=== PATIENT | female | born 1990 | race Two or more races ===

== ENCOUNTER 2020-07-28 10:15 | Emergency (ER) | payer BC, SELFPAY ==
[2020-07-28 10:18] VITALS: BP 127/86; PULSE 82; RESP 16; TEMP 36.2; O2SAT 99; BMI 18.2
--- NOTE | 2020-07-28 10:35 | RAD_ITS ---
STUDY: X-RAY - RIGHT HAND REASON FOR EXAM: Female, 29 years old. DOG BITE TO DISTAL 4TH DIGIT TECHNIQUE: 3 view(s) of the hand. COMPARISON: None. FINDINGS: Normal radiocarpal articulation. Normal distal radioulnar joint. Normal visualized carpal bones. Normal carpal articulations Normal carpometacarpal articulation of the thumb. Normal second through fifth carpometacarpal joints. Normal metacarpi. Normal metacarpophalangeal joint of the thumb. Normal interphalangeal joint of the thumb. Normal proximal and distal phalanges of the thumb. Normal metacarpophalangeal joints of the second through fifth fingers. Normal proximal and distal interphalangeal joints of the second through fifth fingers. Nondisplaced comminuted fracture of the tuft of the distal phalanx of the fourth digit. Soft tissue laceration overlying the fourth digit. RAD/Hand Min 3 Views IMPRESSION: Nondisplaced comminuted fracture of the tuft of the distal phalanx of the fourth digit with overlying soft tissue laceration. Electronically Signed: Darryn Wills MD at 11:01 EST , Service support ,
[2020-07-28] MEDS: Amox/Clavulanate 875 MG Tablet PO (10:55)
[2020-07-28] MEDS: Diphth,Pertuss(Acell),Tet Vac 0.5 ML Vial IM (10:56)
[2020-07-28 14:47] VITALS: PULSE 64; RESP 16; O2SAT 99
--- NOTE | 2020-07-28 15:54 | ED.DCSUM_ITS ---
History of Present Illness Chief Complaint: Bite Narrative: Patient presenting for evaluation secondary to a dog bite. Patient is right- hand dominant. She broke up a dog fight between her 2 dogs and suffered a bite wound to her right ring finger. Patient reports that her tetanus status is not up-to-date. Pain is moderate. She denies any history of immunosuppression. Review of systems otherwise negative. Past Medical History - Allergies and Home Meds Allergies/Adverse Reactions: Allergies No Known Allergies Allergy (Verified 07/28/20 10:16) Primary Care Physician: Care Physician,No Primary [Primary Care Provider] - Prior records reviewed: Yes Past Medical History: None Lives: With Family Smoking Status: Never smoker Alcohol: None Drugs: None Review of Systems General: Denies: Fever Respiratory: Denies: Dyspnea, Cough Gastrointestinal: Denies: Nausea, Vomiting Musculoskeletal: Reports: Extremity Pain Skin: Denies: Rash Endocrine: Denies: Polyuria, Polydipsia Hematologic: Denies: Easy bruising, Easy bleeding Physical Exam Vital Signs/Narrative: Vital Signs Pulse Resp Pulse Ox 07/28/20 14:47 [id number] Inital Vital Signs reviewed: Yes Right Hand: - - Normal flexion and extension of the fingers. Normal capillary refill. Decreased two-point discrimination of the digit. Right Finger: - - Right ring finger shows significant injury to the distal phalanx with disruption over the middle portion of the nail with complete laceration of the nail going through the nailbed. Laceration extends radially on the finger around to the pad and then there is a small laceration separate General: Well nourished, Well developed Head: Normocephalic, Atraumatic Eyes: EOMI ENT: Moist Mucous Membranes Neck: Nontender Cardiovascular: Regular rate, Regular rhythm Respiratory: No distress Back: Nontender Neurological: Alert, Oriented x3 Psychological: Normal affect Diagnostic/Tx/Re-eval Clinical Impression(s) from Imaging Studies Hand X-Ray 07/28/20 10:35 IMPRESSION: Nondisplaced comminuted fracture of the tuft of the distal phalanx of the fourth digit with overlying soft tissue laceration. Electronically Signed: Darryn Wills MD at 11:01 EST , Service support , - Medical Decision Making Patient presented secondary to a dog bite. Tetanus status was updated. Patient was given Augmentin for prophylaxis. 3 view x-ray of the hand shows a tuft fracture of the fourth digit. Wound was addressed as noted in the procedure note with nailbed repair. Patient was informed that this is high risk for infection, she was educated on signs and symptoms which to return to the emergency department. I discussed patient's case with orthopedics to ensure close follow-up. Patient will follow-up as soon as possible. Patient be discharged with a course of Augmentin. Procedures Procedure(s): Finger was anesthetized by digital block using bupivacaine. Total of 5 cc were injected with good anesthesia. Patient's entirety of her hand was prepped with Betadine. It was draped in sterile fashion. Tourniquet was placed over the base of the patient's ring finger. The distal and proximal portions of the nail were removed using blunt dissection and hemostats. The entirety of the nail was able to be removed. Patient's finger lacerations were copiously irrigated under pressure with saline. The wounds were explored, there was no evidence of foreign material. Nailbed laceration was repaired using 3 simple interrupted 5-0 Vicryl sutures. The extension of that laceration over the radial portion of the patient's finger was approximated using 3 simple interrupted 5-0 Vicryl sutures. The separate laceration over the palmar surface of the pad was approximated using 1 simple interrupted 5-0 Vicryl suture. Patient's proximal portion of her nail was then cleansed using chlorhexidine, was cleaned up with suture scissors. It was secured back in place using a single simple interrupted 5-0 Vicryl suture over the nail matrix. Sterile Vaseline gauze was placed around the tip of the finger and it was copiously wrapped with cotton gauze. He was placed in AlumaFoa splint by nursing. Tourniquet time was less than 20 minutes. ED Disposition - Plan for ED Patient: Disposition: Home or Assisted Living Diagnosis: Nailbed laceration, finger, Open fracture of tuft of distal phalanx of finger, Dog bite Instructions: ED Dog Bite, ED Fracture, Finger, Open, ED FINGERNAIL REMOVAL Prescriptions: Amox/Clavulanate Tablet [Augmentin Tablet] 875 mg PO Q12H #14 tab Prescription Printed Referrals: Adelfo Logan DO [STAFF PHYSICIAN] - 2 Days for wound check
--- NOTE | 2020-07-28 16:12 | ED.RN ---
waiting on orthopedic call back prior to discharge
== END 2020-07-28 16:34 | disposition home or self-care (01) ==
PROVIDERS: Emergency Provider Emergency Medicine
DX: S62.664B Nondisplaced fracture of distal phalanx of right ring finger, initial encounter for open fracture (principal); W54.0XXA Bitten by dog, initial encounter; Y93.89 Activity, other specified; Y92.9 Unspecified place or not applicable; Y99.9 Unspecified external cause status
CPT/HCPCS: 11760; 12001; 73130; 90471; 90715; 99284; A4216